=== PATIENT | female | born 1990 | race Two or more races ===

== ENCOUNTER 2016-05-01 10:43 | Emergency (ER) | payer MEDICAID ==
[~2016-05-01] VITALS: Ht 152.4 cm; Wt 61.7 kg
[2016-05-01 12:42] VITALS: BP 135/74
== END 2016-05-01 12:43 | disposition home or self-care (01) ==
LOC: ER 10:47
DX: R51 Headache (principal)
CPT/HCPCS: 70450-TC; 84703-TC; A4606; Z7610

== ENCOUNTER 2017-01-20 13:23 | Emergency (ER) | payer MEDICAID, OTHER ==
[~2017-01-20] VITALS: Ht 154.9 cm; Wt 60.3 kg
[2017-01-20 13:23] VITALS: BP 112/72
--- NOTE | 2017-01-20 13:42 | NUR ---
RADIOLOGY AT BEDSIDE FOR CHEST XRAY.
[2017-01-20] MEDS ORDERED: IPRATROPIUM NEB FS 0.5 MG/2.5 ML AMPUL.NEB NEB ONE (14:00)
[2017-01-20] MEDS ORDERED: predniSONE 20 MG TABLET PO ONE (14:00)
[2017-01-20] MEDS ORDERED: ALBUTEROL FS 2.5 MG/3 ML VIAL.NEB NEB ONE (14:00)
[2017-01-20] MEDS ORDERED: predniSONE 20 MG TABLET ONE (14:07)
[2017-01-20] MEDS ORDERED: ALBUTEROL FS 2.5 MG/3 ML VIAL.NEB ONE (14:11)
[2017-01-20] MEDS ORDERED: IPRATROPIUM NEB FS 0.5 MG/2.5 ML AMPUL.NEB ONE (14:11)
--- NOTE | 2017-01-20 14:16 | NUR ---
RT AT BEDSIDE FOR BREATHING TREATMENT.
== END 2017-01-20 15:11 | disposition home or self-care (01) ==
LOC: ER 13:26
DX: R05 Cough (principal)
CPT/HCPCS: 71010; 94640; 99283; A4606; J7512; Z7610

== ENCOUNTER 2017-09-28 10:30 | Emergency (ER) | payer MEDICAID, OTHER ==
[~2017-09-28] VITALS: Ht 165.1 cm; Wt 60.8 kg
--- NOTE | 2017-09-28 11:00 | NUR ---
FLU SYMPTOMS, FEVER, N/V x 2 WEEKS, NAD NOTED, VSS, RESP EVEN AND UNLABORED, PT WAS PUT ON MONITOR, AT .
[2017-09-28] MEDS ORDERED: KETOROLAC TROMETHAMINE INJ 30 MG/ML VIAL IV ONE (12:00)
[2017-09-28] MEDS ORDERED: IV NS 0.9% 1,000 ML BAG IV ONE (12:00)
[2017-09-28 12:02] LABS: BASOPHILS % (AUTO) 0.2 % (0.0-2.0); EOSINOPHILS % (AUTO) 0.2 % (0.0-6.0); HEMATOCRIT 34 % (33-45); HEMOGLOBIN 11.8 g/dL (11.5-14.8); LYMPHOCYTES # (AUTO) 1.1 /CMM (0.8-4.8); LYMPHOCYTES % (AUTO) 27.3 % (20.0-44.0); MEAN CORPUSCULAR HGB CONC 34 g/dl (31.0-36.0); MEAN CORPUSCULAR VOLUME 80 fL (82-100); MONOCYTES # (AUTO) 0.3 /CMM (0.1-1.30); MONOCYTES % (AUTO) 8.7 % (2.0-12.0); NEUTROPHILS # (AUTO) 2.4 /CMM (1.8-8.9); NEUTROPHILS % (AUTO) 63.6 % (43.0-81.0); PLATELET COUNT (AUTO) 259 /CMM (150-450); RDW COEFFICIENT OF VARIATION 12.5 (11.5-15.0); RED BLOOD CELL COUNT(AUTO) 4.28 MIL/uL (4.0-5.2); WHITE BLOOD COUNT (AUTO) 3.9 K/uL (4.3-11.0)
[2017-09-28 12:05] LABS: APPEARANCE,URINE Clear (CLEAR); BILIRUBIN,URINE Negative (NEGATIVE); BLOOD, URINE Negative Ery/uL (NEGATIVE); COLOR,URINE Yellow (YELLOW); KETONES,URINE Negative (NEGATIVE); LEUKOCYTE ESTERASE ,URINE Negative (NEGATIVE); NITRITE, URINE Negative (NEGATIVE); PH,URINE 6.5 (5.0-8.0); PROTEIN,URINE Negative (NEGATIVE); UGLUCOSE Negative (NEGATIVE); UROBILINOGEN,URINE 0.2 EU/dL (0.2)
[2017-09-28] MEDS ORDERED: KETOROLAC TROMETHAMINE INJ 30 MG/ML VIAL ONE (12:10)
[2017-09-28 12:12] LABS: CALCIUM, SERUM 9.2 mg/dL (8.5-10.1); CREATININE 0.6 mg/dL (0.6-1.3); POTASSIUM 3.8 mmol/L (3.5-5.1)
[2017-09-28 13:10] VITALS: BP 109/75
--- NOTE | 2017-09-28 13:11 | NUR ---
Patient discharged to home in stable condition. Written and verbal after care instructions given. Patient verbalizes understanding of instruction.IV removed. Catheter intact and site benign. Pressure and 4x4 applied to site. No bleeding noted. Prescription given.
== END 2017-09-28 13:13 | disposition home or self-care (01) ==
LOC: ER 10:34
DX: B34.9 Viral infection, unspecified (principal); M79.1 Myalgia
CPT/HCPCS: 36415; 71045-TC; 80048-TC; 81000-TC; 84703-TC; 85025-TC; A4606; J1885; J7030; Z7610

== ENCOUNTER 2018-06-13 15:56 | Emergency (ER) | payer OTHER ==
[~2018-06-13] VITALS: Ht 154.9 cm; Wt 53.1 kg
--- NOTE | 2018-06-13 16:17 | NUR ---
BIB SELF W C/O FEVER X 7 DAYS FOLLOWED BY NAUSEA, VOMITING AND DIZZINESS, C/O SORE THROAT, TO ER BED 16, HOOKED TO MONITOR, CHANGED TO GOWN, AWAITING MD MACK
--- NOTE | 2018-06-13 16:22 | NUR ---
ZOO KEEPER DEGRASSE AT BEDSIDE
[2018-06-13] MEDS ORDERED: ONDANSETRON HCL/PF 4 MG/2 ML VIAL IV ONE (16:30)
[2018-06-13] MEDS ORDERED: IV NS 0.9% 1,000 ML BAG IV ONE (16:30)
[2018-06-13] MEDS ORDERED: KETOROLAC TROMETHAMINE INJ 30 MG/ML VIAL IV ONE (16:30)
[2018-06-13 16:40] LABS: HEMATOCRIT 35 % (33-45); HEMOGLOBIN 11.7 g/dL (11.5-14.8); MEAN CORPUSCULAR HGB CONC 33 g/dl (31.0-36.0); MEAN CORPUSCULAR VOLUME 87 fL (82-100); NEUTROPHILS % (AUTO) 80.8 % (43.0-81.0); PLATELET COUNT (AUTO) 267 /CMM (150-450); RED BLOOD CELL COUNT(AUTO) 4.05 MIL/uL (4.0-5.2)
[2018-06-13 16:41] LABS: BASOPHILS % (AUTO) 0.3 % (0.0-2.0); LYMPHOCYTES # (AUTO) 0.9 /CMM (0.8-4.8); LYMPHOCYTES % (AUTO) 13.2 % (20.0-44.0); MONOCYTES # (AUTO) 0.4 /CMM (0.1-1.30); MONOCYTES % (AUTO) 5.7 % (2.0-12.0); NEUTROPHILS # (AUTO) 5.7 /CMM (1.8-8.9)
[2018-06-13] MEDS ORDERED: ONDANSETRON HCL/PF 4 MG/2 ML VIAL ONE (16:46)
[2018-06-13] MEDS ORDERED: KETOROLAC TROMETHAMINE INJ 30 MG/ML VIAL ONE (16:46)
[2018-06-13 16:50] LABS: CALCIUM, SERUM 8.5 mg/dL (8.5-10.1); CREATININE 0.7 mg/dL (0.6-1.3); POTASSIUM 3.3 mmol/L (3.5-5.1)
--- NOTE | 2018-06-13 16:57 | NUR ---
URINE SAMPLE SENT TO LAB
[2018-06-13 17:03] LABS: APPEARANCE,URINE Clear (CLEAR); BILIRUBIN,URINE SMALL (NEGATIVE); BLOOD, URINE Small Ery/uL (NEGATIVE); COLOR,URINE Yellow (YELLOW); KETONES,URINE 40 (NEGATIVE); LEUKOCYTE ESTERASE ,URINE Negative (NEGATIVE); NITRITE, URINE Negative (NEGATIVE); PROTEIN,URINE 30 mg/dl (NEGATIVE); UGLUCOSE Negative (NEGATIVE); UROBILINOGEN,URINE 0.2 EU/dL (0.2)
[2018-06-13 17:05] LABS: BACTERIA,URINE None seen /HPF (None Seen); RBC,URINE 0-2 /HPF (0-2); SQUAMOUS EPITHELIAL CELL,UR Rare /HPF (None Seen); WBC,URINE 0-2 /HPF (0-3)
--- NOTE | 2018-06-13 18:26 | NUR ---
IV removed. Catheter intact and site benign. Pressure and 4x4 applied to site. No bleeding noted.Patient discharged to home in stable condition. Written and verbal after care instructions given. Patient verbalizes understanding of instruction.
[2018-06-13 18:29] VITALS: BP 126/80
== END 2018-06-13 18:30 | disposition home or self-care (01) ==
LOC: ER 15:59
DX: B34.9 Viral infection, unspecified (principal); R11.2 Nausea with vomiting, unspecified; R00.0 Tachycardia, unspecified
CPT/HCPCS: 36415; 71045; 80048; 81001; 84702; 84703; 85025; 87070; 87880; 96361; 96374; 96375; 99284; A4606; J1885; J2405; J7030 ×2; 81000-TC; 86403-TC

== ENCOUNTER 2018-07-21 08:57 | Emergency (ER) | payer OTHER ==
[~2018-07-21] VITALS: Ht 152.4 cm; Wt 55.3 kg
[2018-07-21 09:04] VITALS: BP 104/67
[2018-07-21] MEDS ORDERED: ONDANSETRON 4 MG TAB.RAPDIS ONE (09:19)
[2018-07-21] MEDS ORDERED: ONDANSETRON 4 MG TAB.RAPDIS PO ONE (09:30)
== END 2018-07-21 10:04 | disposition home or self-care (01) ==
LOC: ER 09:05
DX: J10.1 Influenza due to other identified influenza virus with other respiratory manifestations (principal); M79.10 Myalgia, unspecified site
CPT/HCPCS: 71045; 87804 ×2; 99284; Q0162; 87400

== ENCOUNTER 2020-04-13 15:31 | Emergency (ER) | payer MEDICAID, OTHER ==
[~2020-04-13] VITALS: Ht 152.4 cm; Wt 59.9 kg
[2020-04-13 15:47] VITALS: BP 134/77
[2020-04-13] MEDS ORDERED: TDAP [DIPH/PERTUSSIS/TET] 0.5 ML VIAL IM ONE (16:45)
[2020-04-13] MEDS: TDAP [DIPH/PERTUSSIS/TET] 0.5 ML VIAL IM ONE (16:50)
--- NOTE | 2020-04-13 16:50 | NUR ---
Patient discharged to home in stable condition. Written and verbal after care instructions given. Patient verbalizes understanding of instruction. Pt ambulatory with a steady gait
== END 2020-04-13 16:52 | disposition home or self-care (01) ==
LOC: ER 15:32
DX: S61.412A Laceration without foreign body of left hand, initial encounter (principal); W26.0XXA Contact with knife, initial encounter; Y93.89 Activity, other specified; Y92.89 Other specified places as the place of occurrence of the external cause; Y99.8 Other external cause status
CPT/HCPCS: 90715

== ENCOUNTER 2020-04-23 14:44 | Emergency (ER) | payer MEDICAID, OTHER ==
[~2020-04-23] VITALS: Ht 152.4 cm; Wt 50.3 kg
[2020-04-23 14:50] VITALS: BP 144/86
--- NOTE | 2020-04-23 15:05 | NUR ---
SUTURE REMOVED BY .
--- NOTE | 2020-04-23 15:13 | NUR ---
Patient discharged to home in stable condition. Written and verbal after care instructions given. Patient verbalizes understanding of instruction.
== END 2020-04-23 15:18 | disposition home or self-care (01) ==
LOC: ER 14:49
DX: S61.412D Laceration without foreign body of left hand, subsequent encounter (principal); X58.XXXD Exposure to other specified factors, subsequent encounter

== ENCOUNTER 2020-07-24 14:08 | Emergency (ER) | payer MEDICAID ==
[~2020-07-24] VITALS: Ht 160 cm; Wt 56.7 kg
[2020-07-24 14:27] VITALS: BP 118/65
[2020-07-24] MEDS ORDERED: BENZ-13 PO (15:18)
[2020-07-24] MEDS ORDERED: IBUP-1955 PO (15:19)
== END 2020-07-24 15:36 | disposition home or self-care (01) ==
LOC: ER 14:39
DX: R05 Cough (principal); J02.9 Acute pharyngitis, unspecified; T50.B95A Adverse effect of other viral vaccines, initial encounter; Z98.890 Other specified postprocedural states; Y92.89 Other specified places as the place of occurrence of the external cause

== ENCOUNTER 2021-09-10 17:13 | Emergency (ER) | payer MEDICAID ==
[~2021-09-10] VITALS: Ht 154.9 cm; Wt 55.8 kg
[~2021-09-10 17:13] MED LIST: BENZ-13 PO; IBUP-1955 PO
[2021-09-10 17:24] VITALS: BP 121/75
--- NOTE | 2021-09-10 17:24 | NUR ---
LEFT ANKLE PAIN/SWELLING,TRIP/FALL AT 0500 THIS MORNING
[2021-09-10] MEDS ORDERED: IBUPROFEN 600 MG TABLET ONE ×2 (17:35→17:38)
[2021-09-10] MEDS: IBUPROFEN 600 MG TABLET PO ONE (17:36)
== END 2021-09-10 18:27 | disposition home or self-care (01) ==
LOC: ER 17:13
DX: M25.572 Pain in left ankle and joints of left foot (principal); Z79.899 Other long term (current) drug therapy
CPT/HCPCS: 73610-TC; 73630-TC

== ENCOUNTER 2022-12-10 07:58 | Emergency (ER) | payer MEDICAID ==
[~2022-12-10] VITALS: Ht 152.4 cm; Wt 57.2 kg
[2022-12-10 08:09] VITALS: BP 106/63; TEMP 98.4; O2SAT 100
[2022-12-10] MEDS ORDERED: AZIT250T PO (08:20)
[2022-12-10] MEDS ORDERED: IBUP-1953 PO (08:20)
== END 2022-12-10 08:28 | disposition home or self-care (01) ==
LOC: ER 08:03
DX: U07.1 COVID-19 (principal); J40 Bronchitis, not specified as acute or chronic; Z79.899 Other long term (current) drug therapy
CPT/HCPCS: 99283; 87426; 87880; C9803; 86403-TC